=== PATIENT | female | born 1975 | race Caucasian/White ===

== ENCOUNTER 2025-02-14 16:48 | Emergency (ER) | payer OTHER, SELFPAY ==
[2025-02-14 16:53] VITALS: BP 134/83; PULSE 91; RESP 16; TEMP 36.9; O2SAT 95
[2025-02-14 16:57] VITALS: BP 134/83; PULSE 91; RESP 16; TEMP 36.9; O2SAT 95
[2025-02-14 17:17] LABS: Glucose Negative (Negative)
[2025-02-14 17:17] LABS: Abs Immature Grans 0.04 10^3/uL (0.0-0.06); HCT 43.8 % (36.0-46.0); HGB 14.9 g/dL (11.2-15.7); Immature Grans % 0.3 %; MCH 31.9 pg (27.0-33.0); MCHC 34.0 % (32.0-36.0); MCV 94 fL (80-95); MPV 9.3 fL (8.0-11.0); Platelet Count 281 10^3/uL (130-400); RBC 4.67 10^6/uL (3.93-5.22); RDW 12.9 % (11.7-14.6); RDW-SD 44.1 fL; WBC 14.45 10^3/uL (4.4-10.8)
--- NOTE | 2025-02-14 17:30 | DI.CT_ITS ---
Exam(s) CT ABDOMEN PELVIS W EXAM: CT ABDOMEN PELVIS W CLINICAL HISTORY: RUQ and epigastric pain. TECHNIQUE: Imaging Protocol: Axial computed tomography images with coronal and sagittal reformatted images were created and reviewed CONTRAST MATERIAL: Intravenous: Omnipaque-350 100cc Oral: None COMPARISON: No exams were available for comparison FINDINGS: VISUALIZED LUNG BASES: There is significant infiltrate in the left lower lobe. This involves the posterior basal segment. There is no associated pleural effusion. The visualized right lung bases clear. ABDOMEN: There is no ascites. LIVER: There are 2 small benign-appearing cysts in the liver. These measures slightly less than 1 cm. No dilated intrahepatic ducts. GALLBLADDER/BILIARY: Subtle enhancing densities noted in the anterior wall the gallbladder which is possibly just a vessel. There is no gallbladder wall edema nor pericholecystic fluid. The cystic duct and CBD are not dilated. There are no dilated intrahepatic ducts. PANCREAS: No evidence of pancreatic mass nor dilatation of the pancreatic duct. There is no evidence of pancreatitis. SPLEEN: Spleen is not enlarged. No obvious intrasplenic lesions. Splenic and portal veins are patent. ADRENALS: There are no significant adrenal masses. KIDNEYS:No cysts evident. No solid renal masses. No calculi nor hydronephrosis.. ABDOMINAL AORTA: Abdominal aorta is not enlarged. LYMPH NODES:There is no retroperitoneal nor paraaortic adenopathy. ABDOMINAL WALL: No evidence of significant anterior abdominal wall nor inguinal hernia. GI: No obvious findings in the stomach and duodenum and there is no evidence of small-bowel obstruction, free air, nor abscess. No evidence of mesenteric swirl sign. No evidence of mesenteric masses nor lymphadenopathy. PELVIS: GI: No evidence of appendicitis.No evidence of sigmoid diverticulitis. LYMPH NODES: There is no intrapelvic nor inguinal adenopathy. REPRODUCTIVE: There is an IUD which appears to be in satisfactory position in the endometrial canal. There is no fluid in the endometrial canal but the lower uterine segment-upper cervix appears somewhat hypodense which may imply some edema. A few small nabothian cysts are noted in the upper cervix. Few cysts are noted in the left ovary. Left ovary size is 4 x 2.3 cm which is upper normal. Largest cyst in the left ovary measures approximately 2.5 cm. There is no abnormal fluid in the adnexal region and cul-de-sac. No abnormal findings in the right adnexa. URINARY BLADDER: No calculi nor obvious masses evident. Partially collapsed. OSSEOUS: No fractures and no significant osseous lesions. Sacroiliac joints appear unremarkable and. IMPRESSION: 1. There is significant infiltrate in the left lower lobe, probably infectious. There is no pleural effusion 2. Subtle linear enhancement in the anterior wall the gallbladder is probably just vascular. There does not appear to be obvious acute gallbladder pathology and the biliary tree is not dilated. 3. There is no evidence of acute pancreatitis in this patient who apparently has epigastric pain. There is no evidence of bowel obstruction nor free air nor abscess. There is no ascites. 4. Minimally prominent left ovary contains a 2.5 cm follicular cyst. No surrounding fluid in left adnexa nor elsewhere in the pelvis. 5. IUD noted in the endometrial cavity of the uterus. There appears to be some possible edema in the lower uterine segment/upper cervix. Correlation with time since IUD placement is recommended. Report called by myself to emergency room provider 02/14/2025 at 6:50 p.m. RADIATION DOSE DELIVERED: 801.77mGy.cm Total DLP DATA REPOSITORY: All CT scans at this facility are submitted to the National Radiology Data Registry (NRDR) Dose Index Registry (DIR) with the [employer] ([employer]). RADIATION OPTIMIZATION: All CT scans at this facility use at least one of these dose optimization techniques: automated exposure control; mA and/or kV adjustment per patient size (includes targeted exams where dose is matched to clinical indication); or iterative reconstruction.
[2025-02-14 17:35] LABS: ALT 31 U/L (14-59); AST 19 U/L (15-37); Albumin 4.2 g/dL (3.4-5.0); Alkaline Phosphatase 89 U/L (46-116); Anion Gap 8.1 mmol/L (3-11); BUN 9 mg/dL (7-18); Bilirubin, Total 2.0 mg/dL (0.2-1.0); CO2 27.9 mmol/L (21.0-32.0); Calcium 10.6 mg/dL (8.5-10.1); Chloride 105 mmol/L (98-107); Estimated GFR 55.84 (mL/min/1.73m2); Glucose 93 mg/dL (74-106); Lipase 21 U/L (<78); Magnesium 1.9 mg/dL (1.8-2.4); Potassium 4.2 mmol/L (3.5-5.1); Sodium 141 mmol/L (136-145); Total Protein 8.1 g/dL (6.4-8.2); Troponin I < 4 ng/L (<or=51)
[2025-02-14] MEDS: Normal Saline - Diluent 50 ML VIAL IJ (17:55)
[2025-02-14] MEDS: Omnipaque 350 MG/ML 100 ML BTL IJ (17:56)
[2025-02-14 18:35] LABS: Troponin I 4 ng/L (<or=51)
--- NOTE | 2025-02-14 18:44 | ED.GENADUL_ITS ---
Discharge Plan Disposition Patient Disposition: Home Condition: Stable Discharge Details Clinical Impression: Biliary colic, Pneumonia Primary Care Provider: Lauryn,Local ED Provider: Jyotsna Kerns Home Meds and New Rx's Prescriptions: New amoxicillin 500 mg tablet 1,000 mg PO TID 5 Days Qty: 30 0RF ondansetron 4 mg tablet,disintegrating 4 mg PO Q8H PRNQty: 20 0RF No Action pantoprazole 40 mg tablet,delayed release (DR/EC) 40 mg PO DAILY Mirena 21 mcg/24hr (up to 8 yrs) 52 mg intrauterine device 1 device intrauterine ONCE Rx Instructions: as a single dose Discharge Instructions Instructions: Gallstones ED Additional Instructions: You were seen in the emergency department today for evaluation of epigastric and right upper quadrant abdominal pain. In our department had a full physical examination performed, and had laboratory studies that were largely reassuring, though you do have a slight elevation in your white blood cell count and bilirubin. We did not see any signs of infection in your gallbladder but this could still certainly be contributing to your symptoms. You also had evidence of a new pneumonia in your left lower lobe of your lung. I have sent a prescription for antibiotics to your pharmacy, please take all this medication until it is gone, even if you start to feel better. I have sent you some medicine for nausea to help you maintain your hydration. You should try to eat a low fat and bland diet to avoid irritating your gallbladder or your GERD. When you return home to your primary care provider, please asked them to order a formal right upper quadrant ultrasound, and refer you to a general surgeon to discuss gallbladder surgery. Please continue to take all medications as prescribed, and thank you for allowing us to be part of your care. Discharge Data Discharge Date/Time-TO BE ENTERED AT DEPARTURE: 02/14/25 19:33 HPI General Mode of arrival: ambulatory . Date/Time Provider Initiated Documentation: 02/14/25 17:02 . Limitations to Documentation: no limitations . Information obtained by: patient and old records reviewed . HPI Narrative: This is a 49-year-old female patient presenting for intermittent right upper quadrant pain. The patient reports that she has had this pain for some time, it seems to come and go and is occasionally related to eating, occasionally happens early in the morning when she has not eaten for some time. She has a history of GERD which she manages with pantoprazole, avoiding eating before bedtime, and for which she is scheduled for endoscopic evaluation as well as a right upper quadrant ultrasound. She presented today because she had a fever this morning, went to urgent care and they recommended ED evaluation. She states that she is feeling slightly nauseated but has not vomited, is tolerating oral intake. She reports that her pain persists at this time. Had a bowel movement this morning with no blood or diarrhea. Related Data Home Medications ?Medication ?Instructions ?Recorded ?Confirmed amoxicillin 500 mg tablet 1,000 mg (2 x 500 mg) PO TID 5 02/14/25 days #30 tabs levonorgestrel (Mirena) 1 device intrauterine ONCE 0 02/14/25 02/14/25 ondansetron 4 mg disintegrating 4 mg PO Q8H PRN #20 ta bs 02/14/25 tablet pantoprazole 40 mg tablet,delayed 40 mg PO DAILY 02/1402/14/25 release Previous Rx's ?Medication ?Instructions ?Recorded amoxicillin 500 mg tablet 1,000 mg (2 x 500 mg) PO TID 5 02/14/25 days #30 tabs ondansetron 4 mg disintegrating 4 mg PO Q8H PRN #20 ta bs 02/14/25 tablet Allergies Allergy/AdvReac Type Severity Reaction Status Date / Time Sulfa (Sulfonamide Allergy Intermediate Swelling/Ed Verified 02/14/25 16:52 Antibiotics) rafi General Stated Complaint: Abd Prob SOFIE: 3 Exam Narrative Exam Narrative: Gen: Awake and alert, in no apparent distress HEENT: Non-icteric sclera Neck: Supple Lungs: No apparent respiratory distress, normal respiratory effort. Lung sounds clear and equal CV: Appears well perfused, heart with regular rate and rhythm, strong distal pulses Abdomen: Non-distended, soft, tender to palpation in the right upper quadrant and epigastric region without rigidity, rebound, or guarding. Sonographic Rosales sign present. MSK: Moves 4 extremities without apparent limitation in ROM Skin: Visualized skin without rashes, cyanosis. Neuro: Normal Gait, no obvious focal deficits or facial asymmetry. Speaks in full, clear sentences. Psych: Appropriate for situation. Course Vital Signs Vital signs: Vital Signs Temperature 36.9 C 02/14/25 16:53 Pulse 91 H 02/14/25 16:53 Respiratory Rate 16 02/14/25 16:53 Blood Pressure 134/83 02/14/25 16:53 Pulse Oximetry 95 02/14/25 16:53 Temperature 36.9 C 02/14/25 16:57 Temperature Source Oral 02/14/25 16:57 Pulse 91 H 02/14/25 16:57 Respiratory Rate 16 02/14/25 16:57 Blood Pressure 134/83 02/14/25 16:57 Blood Pressure Position Sitting 02/14/25 16:57 Pulse Oximetry 95 02/14/25 16:57 Oxygen Delivery Method Room Air 02/14/25 16:57 Oxygen Flow Rate 0 02/14/25 16:57 Pain Level 5 02/14/25 16:57 Lab/Test Results Lab/Test Results: Laboratory Tests Range/Units 02/14/25 02/14/25 02/14/25 16:57 17:10 18:08 WBC (4.4-10.8) 10^3/uL 14.45 H RBC (3.93-5.22) 10^6/uL 4.67 Hgb (11.2-15.7) g/dL 14.9 Hct (36.0-46.0) % 43.8 MCV (80-95) fL 94 MCH (27.0-33.0) pg 31.9 MCHC (32.0-36.0) % 34.0 RDW (11.7-14.6) % 12.9 Plt Count (130-400) 10^3/uL 281 MPV (8.0-11.0) fL 9.3 Immature Gran % % 0.3 Neutrophils % % 82.5 Lymphocytes % % 10.9 Monocytes % % 5.8 Eosinophils % % 0.2 Basophils % % 0.3 Nucleated RBC % (0.0-0.3) % 0.0 Absolute Neutrophils (1.2-6.7) 10^3/uL 11.92 H Absolute Lymphocytes (1.2-3.4) 10^3/uL 1.58 Absolute Monocytes (0.1-0.8) 10^3/uL 0.84 H Absolute Eosinophils (0.0-0.7) 10^3/uL 0.03 Absolute Basophils (0.0-0.2) 10^3/uL 0.04 Sodium (136-145) mmol/L 141 Potassium (3.5-5.1) mmol/L 4.2 Chloride (98-107) mmol/L 105 Carbon Dioxide (21.0-32.0) mmol/L 27.9 Anion Gap (3-11) mmol/L 8.1 BUN (7-18) mg/dL 9 Creatinine (0.55-1.02) mg/dL 1.2 H Est GFR (CKD-EPI 2020) (mL/min/1.73m2) 55.84 Glucose (74-106) mg/dL 93 Calcium (8.5-10.1) mg/dL 10.6 H Magnesium (1.8-2.4) mg/dL 1.9 Total Bilirubin (0.2-1.0) mg/dL 2.0 H AST (15-37) U/L 19 ALT (14-59) U/L 31 Alkaline Phosphatase (46-116) U/L 89 Troponin I (<or=51) ng/L < 4 4 Total Protein (6.4-8.2) g/dL 8.1 Albumin (3.4-5.0) g/dL 4.2 Lipase (<78) U/L 21 Urine Color (Yellow) Yellow Urine Clarity (Clear) Clear Urine pH (5-8) 5.5 Ur Specific [place] (1.005-1.025) 1.025 Urine Protein (Neg-Trace) mg/dL Trace Urine Ketones (Negative) mg/dL Negative Urine Blood (Negative) Negative Urine Nitrite (Negative) Negative Urine Bilirubin (Negative) Negative Urine Urobilinogen (Up to 0.2) mg/dL 0.2 Ur Leukocyte Esterase (Negative) Negative Urine Glucose (Negative) mg/dL Negative Range/Units 02/14/25 20:02 WBC (4.4-10.8) 10^3/uL RBC (3.93-5.22) 10^6/uL Hgb (11.2-15.7) g/dL Hct (36.0-46.0) % MCV (80-95) fL MCH (27.0-33.0) pg MCHC (32.0-36.0) % RDW (11.7-14.6) % Plt Count (130-400) 10^3/uL MPV (8.0-11.0) fL Immature Gran % % Neutrophils % % Lymphocytes % % Monocytes % % Eosinophils % % Basophils % % Nucleated RBC % (0.0-0.3) % Absolute Neutrophils (1.2-6.7) 10^3/uL Absolute Lymphocytes (1.2-3.4) 10^3/uL Absolute Monocytes (0.1-0.8) 10^3/uL Absolute Eosinophils (0.0-0.7) 10^3/uL Absolute Basophils (0.0-0.2) 10^3/uL Sodium (136-145) mmol/L Potassium (3.5-5.1) mmol/L Chloride (98-107) mmol/L Carbon Dioxide (21.0-32.0) mmol/L Anion Gap (3-11) mmol/L BUN (7-18) mg/dL Creatinine (0.55-1.02) mg/dL Est GFR (CKD-EPI 2020) (mL/min/1.73m2) Glucose (74-106) mg/dL Calcium (8.5-10.1) mg/dL Magnesium (1.8-2.4) mg/dL Total Bilirubin (0.2-1.0) mg/dL AST (15-37) U/L ALT (14-59) U/L Alkaline Phosphatase (46-116) U/L Troponin I (<or=51) ng/L Cancelled Total Protein (6.4-8.2) g/dL Albumin (3.4-5.0) g/dL Lipase (<78) U/L Urine Color (Yellow) Urine Clarity (Clear) Urine pH (5-8) Ur Specific [place] (1.005-1.025) Urine Protein (Neg-Trace) mg/dL Urine Ketones (Negative) mg/dL Urine Blood (Negative) Urine Nitrite (Negative) Urine Bilirubin (Negative) Urine Urobilinogen (Up to 0.2) mg/dL Ur Leukocyte Esterase (Negative) Urine Glucose (Negative) mg/dL POC- Test(urine) Negative Medical Decision Making This is a 49-year-old female patient presenting for evaluation of right upper quadrant and epigastric abdominal pain. My differential includes, but is not limited to, gastritis/PUD, gastroenteritis, pancreatitis, cholecystitis and gallbladder pathology, hepatitis, appendicitis, diverticulitis, small bowel obstruction. Considered urinary pathology including UTI, nephrolithiasis. Considered mesenteric ischemia, aortic pathology, though this is less concerning based on the patient's history and physical exam. Considered ectopic , PID/TOA, ovarian cyst, ovarian torsion though the symptoms are not located in the lower abdomen or pelvis. At this time the patient states that she is not desiring of any medication for pain or nausea. We performed a bedside ultrasound which did not show any thickening of the gallbladder wall, gallstones, or pericholecystic fluid. We will obtain laboratory studies to include CBC, CMP, magnesium, troponin, lipase, and urinalysis. Urine test was negative. We will obtain a CT scan to better characterize any abnormalities which might account for the patient's symptoms. -I reviewed the patient's laboratory studies, which show a leukocytosis to 14.4, no anemia or thrombocytopenia. Chemistry panel without significant electrolyte derangement, creatinine slightly elevated to 1.2, no liver enzyme abnormalities other than a elevation in her bilirubin to 2.0. Troponin was negative and without interval increase on 1 hour recheck. Lipase is low and the urinalysis is noninfectious. CT scan reviewed by myself and discussed with the radiologist. There is an incidental note of a left lower lobe infiltrate that appears infectious. The patient is without left-sided chest pain, shortness of breath cough or hypoxia, but given the leukocytosis and the notable radiographic findings a course of amoxicillin will be provided. Her home provider will likely need to perform dedicated imaging after treatment. The patient does not have any obvious gallbladder pathology on CT scan, nor pancreatitis. The remainder of her CT scan is without acute or actionable findings. I shared these findings with the patient, and reached out to the general surgeon given the right upper quadrant pain and elevated bilirubin. As the patient is t olerating oral intake and does not have definitive evidence of cholecystitis it is reasonable to pursue outpatient formal ultrasound. I discussed this with the patient, who is returning to her home in [place] tomorrow, and states that she would prefer to do this at her home facility. As she is not experiencing any fever or chills at this time, is tolerating oral intake and is otherwise hem odynamically appropriate I do not think this is unreasonable. The patient was provided with a short course of Zofran to help maintain her hydration, and at this time, the patient has had a full medical evaluation and is safe for discharge to home. They are hemodynamically stable, ambulatory, and tolerating PO. They are understanding of the follow-up plan and return precautions. They left our facility without incident. Jyotsna Kerns MD [facility] All Active Problems (Updated 02/14/25 @ 19:22 by Jyotsna Kerns MD) Pneumonia (Acute) Biliary colic (Acute) Social History Smoking/Tobacco Use Status: Never Smoking risk assessment performed?: Yes Alcohol Intake: current Alcohol Intake frequency: holidays/special occasions only Drug use: Never Do you feel safe at home: Yes Do you feel safe in your relationship?: Yes POCUS Exam (ED) Limited Gallbladder Exam DATE OF EXAM: 02/15/25 TIME OF EXAM: 17:07 PROVIDER THAT PERFORMED THE STUDY: Jyotsna Kerns REASON FOR VISIT: Nausea/vomiting and RUQ pain PERTINENT FINDINGS/IMPRESSION: No apparent abnormalities Exam complete
[2025-02-14] MEDS: Ondansetron O.D.T. 4 MG TABEF, 3 TABS/BTL PO (19:29)
[2025-02-14 19:33] VITALS: BP 128/60; PULSE 91; RESP 18; TEMP 37; O2SAT 96
== END 2025-02-14 19:33 | disposition home or self-care (01) ==
LOC: ER 19:40
PROVIDERS: Emergency Provider Emergency Medicine
DX: K80.50 Calculus of bile duct without cholangitis or cholecystitis without obstruction (principal); J18.9 Pneumonia, unspecified organism; Z97.5 Presence of (intrauterine) contraceptive device; N83.02 Follicular cyst of left ovary
CPT/HCPCS: 36415; 76705; 80053; 81025; 83690; 99285; 74177; 81003; 83735; 84484; 85025; J3490